=== PATIENT | male | born 1955 | race Caucasian/White ===

== ENCOUNTER 2020-04-07 10:47 | Outpatient (REF) | payer OTHER, SELFPAY | END 2020-04-07 10:48 | disposition home or self-care (01) | LOC: HO.LAB 10:47 | PROVIDERS: Visit Provider Internal Medicine | DX: Z20.828 Contact with and (suspected) exposure to other viral communicable diseases (principal) | CPT/HCPCS: C9803; U0003 ==

== ENCOUNTER 2020-08-01 08:46 | Outpatient (REF) | payer OTHER, SELFPAY ==
[2020-08-01 09:43] LABS: Glucose Urine UA NEG (NEG); Leukocyte Esterase Urine NEG (NEG); Nitrite Urine NEG (NEG); PH 5.5 (5.0-8.0); Specific Gravity - Urine >= 1.030 (1.005-1.025); Urine Blood NEG (NEG); Urine Ketones NEG (NEG); Urine Protein NEG (NEG-TRACE)
[2020-08-01 09:49] LABS: Appearance Urine CLEAR; Color Urine YELLOW
[2020-08-01 09:55] LABS: Hematocrit 39.6 % (42-52); Hemoglobin 13.3 g/dl (14.0-18.0); Mean Corpuscular HGB Conc 33.6 g/dl (31.0-36.0); Mean Corpuscular Hemoglobin 31.1 pg (27.0-33.0); Mean Corpuscular Volume 92.5 fL (80-98); Mean Platelet Volume 11.1 fL (9.4-12.4); Platelet Count 197 X10*3/uL (160-400); Red Blood Count 4.28 X10*6/uL (4.60-5.80); Red Cell Distribution Width 13.1 % (11.0-16.0); White Blood Count 6.7 X10*3/uL (4.8-10.8)
[2020-08-01 10:17] LABS: Alanine Aminotransferase 30 U/L (0-40); Albumin Level 4.1 g/dL (3.5-5.0); Alkaline Phosphatase 69 U/L (39-117); Anion Gap 12 (12-20); Aspartate Amino Transferase 28 U/L (5-37); Bilirubin Direct 0.2 mg/dL (0.0-0.5); Bilirubin Total 0.6 mg/dL (0.0-1.0); Blood Urea Nitrogen 25 mg/dL (9-16); Calcium 10.3 mg/dL (8.4-10.2); Carbon Dioxide 25 mmol/L (22-29); Chloride 108 mmol/L (96-108); Cholesterol 166 mg/dL; Estimated Glomerular Filt Rate > 60; Glucose Random 60 mg/dL (60-115); HDL Cholesterol 49 mg/dL; LDL Cholesterol Calculated 98 mg/dl; Potassium 3.8 mmol/L (3.3-5.1); Sodium 141 mmol/L (135-145); Total Protein 6.8 g/dL (6.5-8.0); Triglycerides 96 mg/dL
[2020-08-01 10:31] LABS: Thyroid Stimulating Hormone 2.54 uIU/mL (0.32-4.0)
[2020-08-01 10:57] LABS: Folate 16.7 ng/mL (> or = 4.0); Vitamin B12 831 pg/mL (200-900)
[2020-08-05 15:12] LABS: Vitamin D 25-OH, D2 4 ng/mL; Vitamin D 25-OH, D3 18 ng/mL; Vitamin D 25-OH, Total 22 ng/mL (30-100)
== END 2020-08-01 08:47 | disposition home or self-care (01) ==
LOC: HO.LAB 08:46
PROVIDERS: PCP Internal Medicine; Visit Provider Internal Medicine
DX: E78.00 Pure hypercholesterolemia, unspecified (principal)
CPT/HCPCS: 36415; 80048; 80061; 80076; 81003; 82306; 82607; 82746; 84443; 85027

== ENCOUNTER 2021-04-27 11:40 | Outpatient (REF) | payer OTHER, SELFPAY ==
[2021-04-27 13:01] LABS: Appearance Urine CLEAR; Color Urine YELLOW; Glucose Urine UA NEG (NEG); Leukocyte Esterase Urine NEG (NEG); Nitrite Urine NEG (NEG); Specific Gravity - Urine 1.025 (1.005-1.025); Urine Blood NEG (NEG); Urine Ketones NEG (NEG); Urine Protein NEG (NEG-TRACE)
[2021-04-27 13:07] LABS: RBC Urine 0 /HPF (0); Squamous Epithelial Cell Urine TRACE /LPF; WBC Urine 0 /HPF (0-4)
== END 2021-04-27 11:41 | disposition home or self-care (01) ==
LOC: HO.LAB 11:40
PROVIDERS: PCP Internal Medicine; Visit Provider Internal Medicine
DX: R30.0 Dysuria (principal)
CPT/HCPCS: 81001

== ENCOUNTER 2021-05-23 09:14 | Outpatient (REF) | payer OTHER, SELFPAY ==
[2021-05-23 09:59] LABS: Appearance Urine CLEAR; Color Urine STRAW; Glucose Urine UA NEG (NEG); Leukocyte Esterase Urine NEG (NEG); Nitrite Urine NEG (NEG); PH 5.5 (5.0-8.0); Specific Gravity - Urine 1.025 (1.005-1.025); Urine Blood NEG (NEG); Urine Ketones NEG (NEG); Urine Protein NEG (NEG-TRACE)
[2021-05-23 10:22] LABS: Hemoglobin 11.7 g/dl (14.0-18.0); Mean Corpuscular HGB Conc 30.8 g/dl (31.0-36.0); Mean Corpuscular Hemoglobin 26.5 pg (27.0-33.0); Mean Platelet Volume 10.7 fL (9.4-12.4); Platelet Count 174 X10*3/uL (160-400); Red Blood Count 4.42 X10*6/uL (4.60-5.80); Red Cell Distribution Width 23.9 % (11.0-16.0); White Blood Count 6.7 X10*3/uL (4.8-10.8)
[2021-05-23 10:42] LABS: Alanine Aminotransferase 24 U/L (0-40); Alkaline Phosphatase 66 U/L (39-117); Aspartate Amino Transferase 21 U/L (5-37); Bilirubin Direct 0.2 mg/dL (0.0-0.5); Bilirubin Total 0.5 mg/dL (0.0-1.0); Cholesterol 156 mg/dL; HDL Cholesterol 69 mg/dL; LDL Cholesterol Calculated 72 mg/dl; Total Protein 6.6 g/dL (6.5-8.0); Triglycerides 76 mg/dL
[2021-05-23 11:05] LABS: Thyroid Stimulating Hormone 2.63 uIU/mL (0.32-4.0)
[2021-05-28 15:51] LABS: Vitamin D 25-OH, D2 <4 ng/mL; Vitamin D 25-OH, D3 17 ng/mL; Vitamin D 25-OH, Total 17 ng/mL (30-100)
== END 2021-05-23 09:15 | disposition home or self-care (01) ==
LOC: HO.LAB 09:14
PROVIDERS: PCP Internal Medicine; Visit Provider Internal Medicine
DX: E78.00 Pure hypercholesterolemia, unspecified (principal); F41.1 Generalized anxiety disorder
CPT/HCPCS: 36415; 80061; 80076; 81003; 82306; 84443; 85027

== ENCOUNTER → 2021-12-04 09:48 | Outpatient (BNVA) | payer SELFPAY | PROVIDERS: PCP Internal Medicine; Visit Provider Physician Assistant Medical | DX: Z02.79 Encounter for issue of other medical certificate (principal) ==

== ENCOUNTER 2022-05-09 09:18 | Outpatient (REF) | payer OTHER, SELFPAY ==
[2022-05-09 09:44] LABS: Hematocrit 40.2 % (42.0-52.0); Hemoglobin 13.3 g/dl (14.0-18.0); Mean Corpuscular HGB Conc 33.1 g/dl (31.0-36.0); Mean Corpuscular Hemoglobin 30.5 pg (27.0-33.0); Mean Corpuscular Volume 92.2 fL (80.0-98.0); Platelet Count 163 X10*3/uL (160-400); Red Blood Count 4.36 X10*6/uL (4.60-5.80); Red Cell Distribution Width 13.7 % (11.0-16.0)
[2022-05-09 10:32] LABS: Alanine Aminotransferase 38 U/L (0-40); Albumin Level 4.1 g/dL (3.5-5.0); Alkaline Phosphatase 67 U/L (39-117); Anion Gap 10 (12-20); Aspartate Amino Transferase 30 U/L (5-37); Bilirubin Direct 0.2 mg/dL (0.0-0.5); Bilirubin Total 0.6 mg/dL (0.0-1.0); Blood Urea Nitrogen 23 mg/dL (9-16); Calcium 9.3 mg/dL (8.4-10.2); Carbon Dioxide 25 mmol/L (22-29); Chloride 110 mmol/L (96-108); Cholesterol 196 mg/dL; Estimated Glomerular Filt Rate 56; Glucose Random 101 mg/dL (60-115); HDL Cholesterol 51 mg/dL; LDL Cholesterol Calculated 125 mg/dl; Sodium 141 mmol/L (135-145); Total Protein 6.7 g/dL (6.5-8.0); Triglycerides 104 mg/dL
[2022-05-09 10:36] LABS: Thyroid Stimulating Hormone 3.67 uIU/mL (0.32-4.0)
== END 2022-05-09 09:19 | disposition home or self-care (01) ==
LOC: HO.LAB 09:18
PROVIDERS: PCP Internal Medicine; Visit Provider Internal Medicine
DX: E78.00 Pure hypercholesterolemia, unspecified (principal)
CPT/HCPCS: 36415; 80048; 80061; 80076; 84443; 85027

== ENCOUNTER → 2022-11-12 09:02 | Outpatient (BNVA) | payer SELFPAY | PROVIDERS: PCP Internal Medicine; Visit Provider Physician Assistant Medical | DX: Z02.79 Encounter for issue of other medical certificate (principal) ==

== ENCOUNTER 2023-01-03 09:00 | Outpatient (AMB) | payer MEDICARE, SELFPAY ==
--- NOTE | 2023-01-03 09:07 | MHC.PC.OV ---
Vital Signs 01/03/23 09:08 Height 5 ft 9 in Weight 167 lb 2 oz BMI 24.7 BP 100/62 Blood Pressure Location Lt brachial Position Sitting Pulse 60 Pulse Source Pulse Oximeter Pulse Oximetry (%) 98 Oxygen Delivery Method Room Air Intake Visit Reasons: Annual Exam Intake Note: Patient is here today for a physical. Metal Products Viewer Required: No Technical Support Consultant: Not Required per policy Accompanied by: Self / Same As Patient Allergies lisinopril Allergy (Intermediate, Verified 01/12/23 09:19) Swelling Medication List - Last Reconciled 01/12/23 by Isael Clay MD alprazolam 0.5 mg PO BEDTIME PRN atorvastatin 80 mg PO DAILY cholecalciferol (vitamin D3) 1,250 mcg PO QWEEK clotrimazole-betamethasone 1-0.05 % 1 appl topical BID diphenhydramine HCl (Benadryl Allergy) 25 mg PO DAILY PRN epinephrine (EpiPen 2-Eleazar) 0.3 mg (0.3 mL) IM Q4H PRN metoprolol succinate ER (Toprol XL) 50 mg PO DAILY sildenafil 100 mg PO DAILY PRN testosterone 1 packet topical DAILY Tobacco use date assessed: 01/03/23 Fall risk assessment: No Falls in past year Last assessed Fall Risk: 01/03/23 Dental Screening Dental Screen Date: 01/03/23 Did you have a dental visit in the last 12 months?: No Did you have a dental problem in the last 6 months where you did not have access to dental care?: No Was dental information given to patient?: Patient has dentist HPI Annual Exam HPI Details 67-year-old male presents to the office requesting an annual physical exam. [facility] Medical History Generalized anxiety disorder Androgen deficiency Hypercholesterolemia Vitamin deficiency, unspecified Tobacco use disorder Surgical History No history of previous surgery Family History Father Stroke Mother Hypertension Hyperlipidemia Paternal Uncle Prostate cancer Social History Housing: House Alcohol intake: current Alcohol intake frequency: a few times a month Alcohol type: beer and hard liquor Patient Tobacco Use Status: Current someday Tobacco user (twice a year) Tobacco use type: Cigar e-Cigarette/Vaping Use: Never Used Second Hand Smoke Exposure: Yes service: No Current occupational status: employed Cognitive needs: No Hearing needs: No Vision needs: Yes (glasses) Questionnaire Thrive Questionnaire Date Thrive assessed: 07/05/22 GENA-7 AMB Questionnaire GENA-7 Date GENA - 7 assessed: 07/05/22 Source: Developed by Drs. Jens Carey, Rimma Mccray, Trace Romero and colleagues, with an educational carlitos from [employer]. Physical exam (Primary Care) Vital Signs: Last Vital Signs Pulse 60 01/03/23 09:08 BP 100/62 01/03/23 09:08 Pulse Ox 98 01/03/23 09:08 Oxygen Delivery Method Room Air 01/03/23 09:08 BMI result Body Mass Index 24.7 Tobacco/Smoking Status: Tobacco use Status Tobacco use date assessed 01/03/23 01/03/23 09:15 Patient Tobacco Use Status Current someday Tobacco ( 01/03/23 09:15 twice a year) Tobacco use type Cigar 01/03/23 09:15 e-Cigarette/Vaping Use Never Used 01/03/23 09:15 Thrive Assessment: Date of Thrive Assessment Date Thrive assessed 07/05/22 01/03/23 09:15 Const General: cooperative and healthy appearing Nutritional Appearance: well nourished Orientation/consciousness: patient oriented x3 Limitations: no limitations HENMT Head: Yes normal to inspection Eyes General: appearance normal, both eyes and all related structures Neck Neck: Yes normal visual inspection Chest Chest palpation & inspection: normal palpation of entire chest wall Resp Effort & Inspection: normal respiratory effort Neuro General: patient oriented x3 Assessment and Plan Assessment & Plan (1) Hypercholesterolemia: Code(s): E78.00 - Pure hypercholesterolemia, unspecified Plan: Blood work has been ordered. Will adjust medications according to the results. (2) Generalized anxiety disorder: Code(s): F41.1 - Generalized anxiety disorder Plan: Condition is stable. Continue current medications (3) Annual physical exam: Code(s): Z00.00 - Encounter for general adult medical examination without abnormal findings Plan: Blood work has been ordered. Orders: Orders Lipid Panel 01/03/23 E78. - Pure hypercholesterolemia, unspecified Thyroid Stimulating Hormone 01/03/23 E78. - Pure hypercholesterolemia, unspecified Complete Blood Count no Diff 01/03/23 E7 - Pure hypercholesterolemia, unspecified Basic Metabolic Panel 01/03/23 E78. - Pure hypercholesterolemia, unspecified Liver Panel 01/03/23 E78. - Pure hypercholesterolemia, unspecified UA and rflx microscopic 01/03/23 E7 - Pure hypercholesterolemia, unspecified Medications: Refilled testosterone 1 packet topical DAILY 75 grams 0RF sildenafil administer 30 minutes to 4 hours before activity 100 mg PO DAILY PRN 7 tabs 0RF sexual activity N52.9 - Male erectile dysfunction, unspecified alprazolam 0.5 mg PO BEDTIME PRN 15 tabs 0RF sleep Coding Level of Care Code Est Pt Prev Care >65y(31931) Diagnoses Hypercholesterolemia E78.00 Generalized anxiety disorder F41.1 Annual physical exam Z00.00
[2023-01-03 09:08] VITALS: BP 100/62; PULSE 60; O2SAT 98; BMI 24.7
== END 2023-01-03 10:18 | disposition home or self-care (01) ==
PROVIDERS: PCP Internal Medicine; Visit Provider Internal Medicine
DX: Z00.00 Encounter for general adult medical examination without abnormal findings (principal); E78.00 Pure hypercholesterolemia, unspecified; F41.1 Generalized anxiety disorder
CPT/HCPCS: 99397

== ENCOUNTER 2023-01-03 10:36 | Outpatient (REF) | payer MEDICARE, SELFPAY ==
[2023-01-03 11:25] LABS: Hematocrit 34.8 % (42.0-52.0); Hemoglobin 11.1 g/dl (14.0-18.0); Mean Corpuscular HGB Conc 31.9 g/dl (31.0-36.0); Mean Corpuscular Hemoglobin 28.6 pg (27.0-33.0); Mean Corpuscular Volume 89.7 fL (80.0-98.0); Mean Platelet Volume 11.1 fL (9.4-12.4); Platelet Count 187 X10*3/uL (160-400); Red Blood Count 3.88 X10*6/uL (4.60-5.80); Red Cell Distribution Width 14.2 % (11.0-16.0); White Blood Count 7.4 X10*3/uL (4.8-10.8)
[2023-01-03 11:46] LABS: Alanine Aminotransferase 19 U/L (0-40); Albumin Level 4.2 g/dL (3.5-5.0); Alkaline Phosphatase 80 U/L (39-117); Anion Gap 12 (12-20); Aspartate Amino Transferase 23 U/L (5-37); Bilirubin Direct 0.2 mg/dL (0.0-0.5); Bilirubin Total 0.5 mg/dL (0.0-1.0); Blood Urea Nitrogen 22 mg/dL (9-16); Calcium 9.5 mg/dL (8.4-10.2); Carbon Dioxide 24 mmol/L (22-29); Chloride 110 mmol/L (96-108); Cholesterol 173 mg/dL (<200); Estimated Glomerular Filt Rate 55; Glucose Random 86 mg/dL (60-115); HDL Cholesterol 44 mg/dL (>40); LDL Cholesterol Calculated 104 mg/dL (<100); Potassium 3.8 mmol/L (3.3-5.1); Sodium 142 mmol/L (135-145); Total Protein 7.3 g/dL (6.5-8.0); Triglycerides 128 mg/dL (<150)
[2023-01-03 12:02] LABS: Thyroid Stimulating Hormone 3.19 uIU/mL (0.32-4.0)
[2023-01-03 13:38] LABS: Appearance Urine Clear; Color Urine Yellow; Glucose Urine UA Negative (Negative); Leukocyte Esterase Urine Negative (Negative); Nitrite Urine Negative (Negative); PH 5.5 (5.0-9.0); Specific Gravity - Urine 1.025 (1.005-1.025); Urine Blood Negative (Negative); Urine Ketones Negative (Negative); Urine Protein Negative (Neg-Trace)
== END 2023-01-03 10:37 | disposition home or self-care (01) ==
LOC: HO.LAB 10:36
PROVIDERS: PCP Internal Medicine; Visit Provider Internal Medicine
DX: E78.00 Pure hypercholesterolemia, unspecified (principal)
CPT/HCPCS: 36415; 80048; 80061; 80076; 81003; 84443; 85027

== ENCOUNTER → 2023-10-17 08:56 | Outpatient (BNVA) | payer SELFPAY | PROVIDERS: PCP Internal Medicine; Visit Provider Physician Assistant | DX: Z02.79 Encounter for issue of other medical certificate (principal) ==

== ENCOUNTER → 2024-09-28 13:22 | Outpatient (BNVA) | payer SELFPAY | PROVIDERS: PCP Internal Medicine; Visit Provider Physician Assistant Medical | DX: Z02.79 Encounter for issue of other medical certificate (principal) ==